=== PATIENT | female | born 1990 | race Caucasian/White ===

== ENCOUNTER 2020-03-28 05:49 | Outpatient (RCR) | payer OTHER ==
[~2020-03-28] VITALS: Ht 162.6 cm; Wt 48.6 kg
[2020-03-28] MEDS ORDERED: MULT-141 PO (15:25)
[2020-03-28] MEDS ORDERED: DOXY20TA5 PO (15:25)
== END 2020-03-28 15:29 | disposition home or self-care (01) ==
LOC: PREOP 05:49
PROVIDERS: ATTEND Obstetrics & Gynecology
DX: Z01.818 Encounter for other preprocedural examination (principal); D06.9 Carcinoma in situ of cervix, unspecified

== ENCOUNTER 2020-04-04 08:26 | Day surgery (SDC) | payer OTHER ==
[~2020-04-04] VITALS: Ht 162.6 cm; Wt 49.4 kg
[2020-04-04] VITALS (8 sets, daily range): BP systolic 89–114; BP diastolic 61–85
--- NOTE | 2020-04-04 08:14 | History & Physical-Surgical ---
HPO-Surgical History of Present Illness Chief Complaint: Neisha presents for CKC biopsy of the cervix. 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 History of LEEP with CECY III with positive margins. Had an abnormal pap 09/28/18 that was ASC-H HPV +. 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 LEEP was done 11/23/18 that showed HSIL CECY III, margin positive for dysplasia. 6 month repeat pap was ASCUS, HR HPV + (05/2019), LEEP was CECY III. There is a patch on the right lateral cervix that was the biopsy. I cauterized this, but because of the diagnosis, recommended to have CKC. She has IUD and does not wish to have children. Offered her CKC and/or hysterectomy. She is unsure about hysterectomy at this time, so will plan CKC in the OR. Diagnosis/Surgical Indication: CECY III Procedure: cone knife cone bx Date of Surgery: Apr 04, 2020 Weight (Pounds): 109 Allergies and Home Medications Allergies Coded Allergies: No Known Drug Allergies (Unverified , 03/28/20) Home Medications Doxycycline Hyclate 20 Mg Tablet, 40 MG PO DAILY, (Reported) Multivit with Calcium,Iron,Min 1 Each Tablet, 1 EACH PO DAILY, (Reported) Patient Home Medication List Home Medication List Reviewed: Yes Past Mshceud-Xcqrjw-Evtktk Hx Patient Social History Marrital Status: Number of Children: 0 Employed/Student: employed Smoking Status: Never a Smoker Recent Hopitalizations: No Seasonal Allergies Seasonal Allergies: No Surgeries Yes (L pinky finger, R wrist) Respiratory No Cardiovascular No Neurological No Reproductive System : No Genitourinary No Gastrointestinal No Musculoskeletal No Endocrine History of Endocrine Disorders: No HEENT History of HEENT Disorders: No Cancer No Psychosocial History of Psychiatric Problem: No Integumentary History of Skin or Integumenta: No Blood Transfusions History of Blood Disorders: No Family Medical History Significant Family History: No Pertinent Family Hx Exam Vital Signs Capillary Refill : General Appearance: Alert HEENT: Atraumatic Respiratory: Clear to Auscultation, Normal Air Movement Cardiovascular: Regular Rate, Normal S1, Normal S2 Assessment/Plan Assessment and Plan CEYC III (recurrent) Plan CKC biopsy of the cervic. This will be done in the OR under anesthesia (LMA vs conscious sedation vs general) Risks include bleeding, injury to surrounding areas (vagina, bladder, ureter), minimal risk of infection. Appropriate consents have been signed. Admission Diagnosis Admission Status: Other (Outpt Proc) ROBERT ELIZONDO DO Apr 04, 2020 08:14
[~2020-04-04 08:26] MED LIST: DOXY20TA5 PO; MULT-141 PO
[2020-04-04] MEDS ORDERED: MIDAZOLAM 2 MG/2 ML (VERSED) VIAL IV ONE (09:00)
[2020-04-04] MEDS ORDERED: BUPIVACAINE 0.25% 30 ML (SENSORCAINE) VIAL ONE (09:27)
[2020-04-04] MEDS ORDERED: LACTATED RINGERS 1,000 ML IV PRN (09:30)
[2020-04-04] MEDS ORDERED: LIDOCAINE PF 2% 5 ML (XYLOCAINE) VIAL ONE (10:00)
[2020-04-04] MEDS ORDERED: SEVOFLURANE (ULTANE) 15 ML INHAL SOLN ONE ×2 (10:00→11:08)
[2020-04-04] MEDS ORDERED: fentaNYL INJECTION 100 MCG/2 ML AMP ONE (10:00)
[2020-04-04] MEDS ORDERED: proPOfol 200 MG/20 ML (DIPRIVAN) VIAL IV ONE (10:00)
[2020-04-04] MEDS ORDERED: MIDAZOLAM 2 MG/2 ML (VERSED) VIAL ONE (10:01)
[2020-04-04] MEDS ORDERED: ONDANSETRON 4 MG/2 ML (SDV) Z0FRAN ONE (10:03)
[2020-04-04] MEDS ORDERED: PHENYLEPHRINE 100 MCG/ML 10 ML (ANESTHESIA) SYR ONE (10:35)
[2020-04-04] MEDS ORDERED: KETOROLAC 30 MG/ML VIAL ONE (10:47)
--- NOTE | 2020-04-04 11:14 | Operative Report ---
Operative Report Date of Procedure/Surgery Apr 04, 2020 Surgeon (s) ROBERT ELIZONDO DO [employer] Hand (s): NA Post-Operative Diagnosis CECY III recurrent Procedure Performed Cold knife cone biopsy of the cervix Description of Procedure Anesthesia Type: General Estimated blood loss (mL): 100 ml Specimen(s) collected/removed cervical cone biopsy Description of the Procedure With informed consent the patient was taken to the operating room where general anesthesia was found to be adequate. She was prepped and draped in the usual sterile fashion in the dorsolithotomy position. the bladder was drained of clear yellow urine. A catheter was placed in the vagina. The cervix was grasped with a single toothed tenaculum I did a colposcopy and placed Lugols. There was a lesion noted at about 8 o'clock that was Lugol's negative. This was consistent with the biopsy area in the office. I demarcated the cervical biopsy area with the bovie tip. I then placed stay sutures at 3 and 9 o'clock. These are 0 Vicryl and these were used to retract the cervix. I then use the angled knife to perform a cone biopsy. this was 2.5 x 2.5 cm and 1 cm in depth. The IUD strings were seen. this was marked at 12 o'clock with a silk suture. The base of the biopsy site was cauterized with the ball cautery. I then used the previously placed stay sutures to control bleeding with baseball stitches along the peripheral of the base of the cervical biopsy site. I then placed a piece of gelfoam at the base and tied the sutures across to keep this in place. There was approximately 100 ml of blood loss. The instruments were removed from the vagina. The specimen sent for pathology. The patient was awakened and taken to recovery in stable condition. Sponge, lap, needle and instrument counts were correct times two. Postop visit was scheduled. Findings of the Procedure reddened abnormal tissue on the cervix, outside the TZ. At 8-9 o'clock. Consi stent with the previous biopsy. Post leep appearance. IUD strings were seen in the cervical canal, but not at the os Allergies and Home Medications Allergies Coded Allergies: No Known Drug Allergies (Unverified , 03/28/20) Home Medications Acetaminophen 500 Mg Tablet, 1,000 MG PO Q8H PRN for PAIN-MILD (1-4) Prescribed by: ROBERT ELIZONDO on 04/04/20 1123 Doxycycline Hyclate 20 Mg Tablet, 40 MG PO DAILY, (Reported) Ibuprofen 600 Mg Tablet, 600 MG PO Q6HR Prescribed by: ROBERT ELIZONDO on 04/04/20 112 Multivit with Calcium,Iron,Min 1 Each Tablet, 1 EACH PO DAILY, (Reported) Oxycodone Hcl 5 Mg Tab, 5 MG PO Q4H PRN for PAIN-SEVERE (8-10) Prescribed by: ROBERT ELIZONDO on 04/04/20 112 Patient Home Medication List Home Medication List Reviewed: Yes ROBERT ELIZONDO DO Apr 04, 2020 11:14
[2020-04-04] MEDS ORDERED: ONDANSETRON 4 MG/2 ML (SDV) Z0FRAN IVP PRN ×2 (11:15→11:30)
[2020-04-04] MEDS ORDERED: KETOROLAC 30 MG/ML VIAL IVP ONE (11:15)
[2020-04-04] MEDS ORDERED: D5 LR IV SOLUTION 1,000 ML IV SCH (11:15)
[2020-04-04] MEDS ORDERED: ACETAMINOPHEN 500 MG TAB (TYLENOL) PO PRN (11:15)
--- NOTE | 2020-04-04 11:18 | Discharge Inst-Women's Service ---
Discharge Inst-Women's Serv Depart Medication/Instructions New, Converted or Re-Newed RX: RX on Chart Final Diagnosis CECY III recurrent Problems Reviewed?: Yes Consults/Follow Up Additional Follow Up: Yes (1 week for patholgy review and stay suture cut. Could do phone if she is feeling well (minimal to no bleeding, no cramping)) Activity Activity: Activity as Tolerated Driving Instructions: No Driving for 24 Hours NO SMOKING: NO SMOKING Nothing Inside Vagina: No Douching, No Hoffman (2 weeks), No Tampons Diet Discharge Diet: No Restrictions Symptoms to Report to DrMargarita: Bleeding Excessive, Pain Increased, Fever Over 101 Degrees F, Vaginal Bleeding Increase, Vaginal Discharge Foul (expecte light bleeding or spotting for 7-10 days, may seen increase in discharge about 1 week post op. May pass some tissue as the surgicel is absorbed. ) For Any Problems or Questions: Contact Your Physician ROBERT ELIZONDO DO Apr 04, 2020 11:18
[2020-04-04] MEDS ORDERED: OXC5T PO (11:23)
[2020-04-04] MEDS ORDERED: ACET-93 PO (11:23)
[2020-04-04] MEDS ORDERED: IBUP-844 PO (11:23)
[2020-04-04] MEDS ORDERED: HYDROmorphone 2 MG/ML VIAL (DILAUDID) IV ONE (11:30)
--- NOTE | 2020-04-04 11:50 | NUR ---
TO AMB SURG FROM PAR PER CART. ALERT, ASSIST UP TO BR PER REQUEST. GAIT STEADY, VOIDED CLEAR YELLOW URINE WITHOUT PROBLEM. SMALL AMOUNT OF BLOOD ON TOILET PAPER, OTHERWISE NO BLEEDING. V-PAD DRY ON ARRIVAL. ASSIST BACK TO BED. PO FLUIDS AND CRACKERS PROVIDED. RATES PELVIC DISCOMFORT 4.
[2020-04-04] MEDS ORDERED: IBUPROFEN 600 MG (MOTRIN) TAB PO SCH (12:00)
--- NOTE | 2020-04-04 12:29 | NUR ---
TAKING PO FLUIDS AND CRACKERS WITHOUT PROBLEM. OXYCODONE 5 MG, ONE TAB, GIVEN PO FOR C/O PELVIC PAIN RATED 7
--- NOTE | 2020-04-04 12:32 | Anesthesia-General Post-Op ---
General Patient Condition Mental Status/LOC: Same as Preop Cardiovascular: Satisfactory Nausea/Vomiting: Absent Respiratory: Satisfactory Pain: Controlled Complications: Absent Post Op Complications Complications None Follow Up Care/Instructions Patient Instructions None needed. Anesthesia/Patient Condition Patient Condition Patient is doing well, no complaints, stable vital signs, no apparent adverse anesthesia problems. No complications reported per nursing. D/C home per [facility] [place] Criteria: Yes NIMESH SIMPSON CRNA Apr 04, 2020 12:32
--- NOTE | 2020-04-04 13:15 | NUR ---
RATES PELVIC PAIN 3-4. VERY SCANT AMOUNT OF BLOODY DRAINAGE ON PAD.
--- NOTE | 2020-04-04 13:40 | NUR ---
ALERT, HAS BEEN TO BR AGAIN WITH ASSIST TO VOID. GAIT STEADY. PELVIC PAIN RATED 3.
== END 2020-04-04 13:40 | disposition home or self-care (01) ==
LOC: SDC 08:26
PROVIDERS: ATTEND Obstetrics & Gynecology
DX: D06.9 Carcinoma in situ of cervix, unspecified (principal)
CPT/HCPCS: 84703; 87081; 88307